=== PATIENT | female | born 1995 | race Caucasian/White ===

== ENCOUNTER → 2021-04-28 11:25 | Outpatient (CLI) | payer OTHER, MEDICAID, SELFPAY ==
[2021-04-28 12:58] LABS: COVID19 -Nasal RAPID POSITIVE (Negative)
== END ==
PROVIDERS: Family Provider Pediatrics; PCP Pediatrics; Visit Provider Physician Assistant
DX: U07.1 COVID-19 (principal); Z20.822 Contact with and (suspected) exposure to COVID-19
CPT/HCPCS: 87635

== ENCOUNTER → 2021-11-19 08:56 | Outpatient (CLI) | payer OTHER, MEDICAID, SELFPAY ==
--- NOTE | 2021-11-19 | DI.US.S_ITS ---
PROCEDURE: US OB >= 14 WEEKS FETUS INDICATIONS: 20 WEEK ANATOMY SCAN OUTSIDE/PRIOR DATING DATA: Last menstrual period (LMP): 06/30/2021. LMP-based estimated date of delivery (GEM): 04/06/2022. First dating scan (date and location): 09/12/2021. Estimated date of delivery (GEM) from first dating scan: 04/04/2022. TECHNIQUE: Real-time scanning was performed of the fetus, with image documentation and biometric measurements. Endovaginal scanning: Non COMPARISON: None. FINDINGS: General: A single living intrauterine gestation is present. Presentation: Vertex. Placenta: Placental position is anterior , without previa. Amniotic fluid index: 14.4 cm, normal range is 5-24 cm. heart rate: 137 beats per minute. Maternal cervical canal: 4.0 cm long. Normal lower limit is 2.5 cm. biometrics: Biparietal diameter: 5.1 cm, 21 week 2 day Head circumference: 8.4 cm, 20 week 5 day Abdominal circumference: 15.7 cm, 20 week 6 day Femur length: 3.0 cm, 19 week 2 day Clinically estimated gestational age: 20 week 4 day Composite gestational age from present scan: 20 week 4 day Anatomic survey: Neuro: Ventricles are non-dilated at less than 10 mm. Cisterna magna is normal at 3-11 mm. Cerebellum is normal in size and morphology. Nuchal skin fold: Normal at less than 6 mm between 14-21 weeks gestational age. Face: Nose and lips, facial profile are normal. Spine: No evidence for spina bifida. Heart: 4-chambered heart is present, with normal ventricular outflow tracts. Diaphragm: Diaphragm is intact. Stomach: Left-sided stomach is present. Kidneys: No hydronephrosis. Normal is less than 5 mm in 2nd trimester, less than 7 mm in 3rd trimester. Cord: 3-vessel cord has orthotopic insertion. Bladder: Normal in size. Extremities: All 4 extremities identified. IMPRESSION: Single live intrauterine consistent with 20 week 4 day gestation. Normal anatomy Approved by: Abdirahman Cade M.D. on 11/19/2021 at 10:34
== END ==
PROVIDERS: Family Provider Pediatrics; PCP Nurse Practitioner Family; Referring Provider Nurse Practitioner Obstetrics & Gynecology; Visit Provider Nurse Practitioner Obstetrics & Gynecology
DX: Z34.92 Encounter for supervision of normal pregnancy, unspecified, second trimester (principal); Z3A.20 20 weeks gestation of pregnancy
CPT/HCPCS: 76811

== ENCOUNTER 2022-04-02 18:40 | Inpatient (IN) | payer OTHER, MEDICAID, SELFPAY ==
--- NOTE | 2022-04-02 19:17 | PM.OBTRLD ---
Visit Information Visit Information Date of evaluation: 04/02/22 Primary OB Provider: Pat Barger On-call OB Provider: Pat Barger Reason for Evaluation: Yes rupture of membranes PFSH Social History Smoking Status: Never smoker Diagnosis, Plan/Disposition Final Diagnosis (1) Amniotic cavity/membrane problem suspected but not found: Status: Acute Plan/Disposition OB Disposition: home
[2022-04-02] MEDS: AMPICILLIN 2,000 MG in SODIUM CHLORIDE 0.9% 100 ML 200 MG IV (22:56)
[2022-04-02] MEDS: ONDANSETRON 4 MG/2 ML INJ IV (22:56)
[2022-04-02 23:10] LABS: COVID19 -Nasal RAPID Negative (Negative)
[2022-04-02] MEDS: LACTATED RINGERS 1,000 ML 100 ML IV (23:25)
[2022-04-02 23:31] LABS: Add Manual Diff / Slide Review NO; Basophils Absolute Auto 100 /uL (0-100); Basophils Percent Auto 0.8 % (0-2); Eosinophils Absolute Auto 0 /uL (0-450); Eosinophils Percent Auto 0.3 % (2-4); Hematocrit 40.4 % (36-46); Hemoglobin 13.9 g/dL (12.0-16.0); Lymphocytes Absolute Auto 3000 /uL (1100-4500); Lymphocytes Percent Auto 22.3 % (25-40); Mean Corpuscular HGB Conc 34.3 % (30-36); Mean Corpuscular Volume 90.4 fL (80-100); Monocytes Absolute Auto 700 /uL (0-900); Monocytes Percent Auto 5.5 % (3-14); Neutrophils Absolute Auto 9500 /uL (1500-7000); Neutrophils Percent Auto 71.1 % (50-75); Platelet Count 284 X10^3/uL (150-400); Red Blood Cell Count 4.47 X10^6/uL (4.0-5.2); Red Cell Distribution Width 13.8 % (11.6-14.8); White Blood Cell Count 13.4 X10^3/uL (4.5-11.0)
[2022-04-02] MEDS: FENT 2MCG/ML BUPIV 0.125% EPI 200 MCG/100 ML PLAST..BAG 9 MCG EPIDURAL (23:38)
[2022-04-02 23:59] LABS: Aspartate Aminotransferase 19 IU/L (14-36); BUN Creatinine Ratio 15.3 (6-22); Blood Urea Nitrogen 9 mg/dL (7-17); Estimated Glomerular Filt Rate > 60 mL/min (>60)
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
--- NOTE | 2022-04-03 03:38 | PM.OBPRVD ---
Events: Meconium Stained Fluid Labor & Delivery Delivery date: 04/03/22 Intrapartal Events: None Cervical ripening method: none Induction method: none Delivery monitor: external FHT and external uterine Route of delivery: Episiotomy description: None L&D Laceration Description: None Quantitative Blood Loss: 50 Anesthesia Type: Epidural Narrative: Patient achieved adequate pain relief with epidural anesthesia. Increasing rectal pressure with exam of 9/C/+1 progressed rapidly to . Coached pushing effort led to NSVB of a vigorous baby girl in DAT position over an intact perineum. was sommersaulted through a single loose nuchal cord. The shoulder delivered easily without additional maneuvers. [place] was placed on maternal abdomen for drying and skin to skin. After cessation of pulsation, the cord was double clamped by CNM and cut by FOB. 30 units of pitocin in 500mL LR was started at 250mL/hr for active management of the third stage of labor. Gentle cord traction and a single maternal push led to spontaneous, Schultze delivery of an apparently intact placenta, membranes and 3VC. Fundus immediately firm and bleeding scant. QBL 50mL. Both mother and baby stable and skin to skin as I left [facility] room. [place] Baby 1: gender: Female Presentation: vertex Position: Right Occiput Anterior Placenta delivery description: Spontaneous Cord Vessel Description: 3 Vessels and Nuchal Cord score (1 min): 9 score (5 min): 9 weight: 3.108 kg Plan for aftercare: Routine care
--- NOTE | 2022-04-03 04:51 | PM.OBDS.1 ---
Discharge Providers Provider Date of admission: 04/02/22 18:40 Discharge Date: 04/03/22 Primary care physician: HOLDEN Kapoor FNP-C Consults: 04/02/22 22:40 Consult to Anesthesiology Urgent Comment: Consulting Provider: Anesthesiologist Reason for consultation: Epidural anesthesia 04/04/22 01:56 Consult to Cotton Stripper Routine Comment: Discharge provider: Pat Barger CNM Summary Hospital Course Date Patient Seen: 04/03/22 Time Patient Seen: 04:51 Diagnoses: O80 Hospital Course: 3 hours s/p NSVB with NO laceration, patient is voiding, ambulating and independently. D/t full unit and staffing shortage, patient was offered early discharge to home because she lives close by and can return quickly, if needed. Patient feels well and desires this. Vaginal bleeding has been scant. Partner is present and supportive. Peripartum Data Delivery Method: Natural Vaginal Laceration Description: None Episiotomy description: None Procedures: O80 complications: none 1: Gender: Female Discharge Diagnosis (1) Encounter for full-term uncomplicated delivery: Status: Acute Status at Discharge Cognitive/behavioral status at discharge: oriented and calm Functional status at discharge: independent ambulation Overall status at discharge: patient is progressing back to baseline Time Spent with Patient Time attestation: Total time spent providing and/or coordinating discharge services: Objective Labs Result Diagrams: 04/02/22 22:20 04/02/22 23:40 Labs: Laboratory Results - last 24 hr 04/02/22 04/02/22 04/02/22 22:20 22:20 22:22 WBC 13.4 H RBC 4.47 Hgb 13.9 Hct 40.4 MCV 90.4 MCH 31.0 MCHC 34.3 RDW 13.8 Plt Count 284 Neut % (Auto) 71.1 Lymph % (Auto) 22.3 L [place] % (Auto) 5.5 Eos % (Auto) 0.3 L Baso % (Auto) 0.8 Neut # (Auto) 9500 H Lymph # (Auto) 3000 [place] # (Auto) 700 Eos # (Auto) 0 Baso # (Auto) 100 BUN Creatinine Estimated GFR BUN/Creatinine Ratio Uric Acid AST SARS-CoV-2 (PCR) Negative Blood Type A Negative Antibody Screen Positive Antibody Identification Anti-D 04/02/22 23:40 WBC RBC Hgb Hct MCV MCH MCHC RDW Plt Count Neut % (Auto) Lymph % (Auto) [place] % (Auto) Eos % (Auto) Baso % (Auto) Neut # (Auto) Lymph # (Auto) [place] # (Auto) Eos # (Auto) Baso # (Auto) BUN 9 Creatinine 0.59 Estimated GFR > 60 BUN/Creatinine Ratio 15.3 Uric Acid 6.0 AST 19 SARS-CoV-2 (PCR) Blood Type Antibody Screen Antibody Identification Exam Vital Signs (past 8 hours): BP 135/86mmHg, HR 79bpm, T 36.2C Temporal Other: Fundus firm @ U, lochia scant. Perineum intact, minimal edema. Discharge Plan Discharge Plan Patient Disposition: Home Discharge orders & Medications Prescriptions: New acetaminophen 325 mg Tablet 650 mg PO Q6HR PRN (Reason: Pain, Mild (1-3)) 14 Days Qty: 60 0RF ibuprofen 600 mg Tablet 600 mg PO Q6HR PRN (Reason: Pain, Mild (1-3)) 14 Days Qty: 60 0RF Continued albuterol sulfate 90 mcg/actuation HFA aerosol inhaler 1 inhalation INHALATION Q4-6H PRN (Reason: shortness of breath) Qty: 8 0RF MULTIVITAMIN (Multivitamin -) 1 cap PO EVERY DAY Qty: 0 albuterol sulfate [Ventolin HFA] 90 MCG/PUFF HFA aerosol inhaler 2 puff INH Q4HP Qty: 1 12RF loratadine [Claritin] 10 MG tablet 10 mg PO QDAY Qty: 30 2RF Discontinued Adult Low Dose Aspirin 81 mg tablet 81 mg PO DAILY Follow up/Referrals: Pat Barger CNM [Advanced Environmental Construction Engineer] - (Return to [facility] March at 0900 for close follow-up Follow-up phone call Saturday, April 16, 2022 at 4pm Follow-up in office Saturday, May 14, 2022 at 12:45pm) Juhi Mcconnell ARNP, FOOD COOKING MACHINE OPERATOR-C [Primary Care Provider] - Diet/Activity/Treatments Diet: Regular Activity: pelvic rest x 6 weeks Skin/Wound/Dressing Care Report to your healthcare provider any signs of infection, such as:: chills, fever, increased pain, unusual drainage and unusual redness Visit Report/Discharge Packet Instructions: DI for Depression Discharge Data Primary Care Provider: Juhi Mcconnell
== END 2022-04-03 05:30 | disposition home or self-care (01) | DRG 560 ==
PROVIDERS: Admitting Provider Nurse Practitioner Obstetrics & Gynecology; Family Provider Pediatrics; PCP Nurse Practitioner Family; Referring Provider Nurse Practitioner Obstetrics & Gynecology; Visit Provider Nurse Practitioner Obstetrics & Gynecology
DX: O99.824 Streptococcus B carrier state complicating childbirth (principal); Z3A.39 39 weeks gestation of pregnancy; Z37.0 Single live birth; O69.81X0 Labor and delivery complicated by cord around neck, without compression, not applicable or unspecified; Z20.822 Contact with and (suspected) exposure to COVID-19; Z67.11 Type A blood, Rh negative
CPT/HCPCS: 36415; 59025; 59050; 84112; 84450; 84550; 85025; 86850; 86870; 86900; 86901; 87635; C9803; G0378; G0379; J0290; J2405